=== PATIENT | male | born 1950 ===

== ENCOUNTER 2019-11-24 08:37 | Emergency (ER) | payer OTHER ==
[~2019-11-24] VITALS: Ht 175.3 cm; Wt 81.6 kg
[2019-11-24] MEDS ORDERED: METFORMIN HCL500 M3 PO (08:48)
[2019-11-24] MEDS ORDERED: VASOTEC10 MG NGT (08:48)
[2019-11-24] MEDS ORDERED: NAPROXEN500 MG PO (15:29)
== END 2019-11-24 16:36 | disposition home or self-care (01) ==
LOC: ER 08:37 → CPU-OBS 08:46 → ER 08:46
DX: R07.89 Other chest pain (principal); M79.18 Myalgia, other site